=== PATIENT | female | born 1970 | race Two or more races ===

== ENCOUNTER 2024-02-25 18:16 | Emergency (ER) | payer OTHER ==
[~2024-02-25] VITALS: Ht 170.2 cm; Wt 59.1 kg
[2024-02-25 18:21] VITALS: TEMP 97.8
[2024-02-25 18:46] LABS: BASOPHILS % (AUTO) 0.5 % (0.0-2.0); EOSINOPHILS % (AUTO) 6.2 % (1.0-6.0); HEMATOCRIT 37.4 % (36-46); HEMOGLOBIN 12.3 g/dL (12.0-16.0); LYMPHOCYTES # (AUTO) 1.2 K/uL (1.0-4.8); LYMPHOCYTES % (AUTO) 20.9 % (22.0-44.0); MEAN CORPUSCULAR HEMOGLOBIN 31.8 pg (26.0-34.0); MEAN CORPUSCULAR VOLUME 96 fL (80-100); MONOCYTES # (AUTO) 0.5 K/uL (0.1-1.0); MONOCYTES % (AUTO) 8.5 % (2.0-9.0); NEUTROPHILS # (AUTO) 3.6 K/uL (1.8-7.7); NEUTROPHILS % (AUTO) 63.9 % (40.0-70.0); PLATELET COUNT (AUTO) 280 K/uL (150-450); RED BLOOD CELL COUNT(AUTO) 3.88 MIL/uL (4.00-5.20); RED CELL DISTRIBUTION WIDTH 13.9 % (11.5-14.5); WHITE BLOOD COUNT (AUTO) 5.7 K/uL (4.5-11.0)
[2024-02-25 18:57] LABS: ANION GAP 10 mmol/L (8-16); CALCIUM, TOTAL 8.8 mg/dL (8.8-10.5); CARBON DIOXIDE 28 mmol/L (22-29); CHLORIDE 101 mmol/L (98-107); CREATININE 0.69 mg/dL (0.60-1.30); GLOMERULAR FILTR. RATE CALC > 60 mL/min (>60); GLUCOSE,RANDOM 91 mg/dL (70-110); POTASSIUM 3.4 mmol/L (3.5-5.1); SODIUM SERUM 139 mmol/L (136-145); UREA NITROGEN, BLOOD 18 mg/dL (7-18)
[2024-02-25 19:11] LABS: TROPONIN I-HIGH SENSITIVITY Less Than 4 ng/L (<51)
[2024-02-25] MEDS: KETOROLAC TROMETHAMINE 30 MG/ML VIAL IM ONE (20:15)
[2024-02-25] MEDS: HYDROCODONE/ACETAMINOPHEN 5-325 MG TABLET PO ONE (20:15)
[2024-02-25] MEDS ORDERED: BACTDSB PO (20:28)
[2024-02-25] MEDS ORDERED: HYDR-4062 PO (20:28)
[2024-02-25] MEDS ORDERED: METH-812 PO (20:28)
[2024-02-25] MEDS ORDERED: IBUP-1492 PO (20:28)
[2024-02-25 21:00] VITALS: BP 106/50; PULSE 78; RESP 18; O2SAT 99
== END 2024-02-25 21:08 | disposition home or self-care (01) ==
LOC: EMS 18:16
DX: M79.18 Myalgia, other site (principal); C50.919 Malignant neoplasm of unspecified site of unspecified female breast; M54.2 Cervicalgia; M25.512 Pain in left shoulder; Z85.3 Personal history of malignant neoplasm of breast
CPT/HCPCS: 99285; 71045; 80048; 84484; 85025; 36415; 93005; 96372; J1885